=== PATIENT | female | born 1940 | race Caucasian/White ===

== ENCOUNTER 2017-05-01 16:12 | Emergency (ER) | payer MEDICARE ==
[~2017-05-01] VITALS: Ht 167.6 cm; Wt 61.8 kg
[2017-05-01 16:22] VITALS: BP 145/64; PULSE 83; RESP 16; TEMP 98.9; O2SAT 95
--- NOTE | 2017-05-01 17:35 | RADRPT ---
EXAM DATE/TIME: 05/01/2017 17:22 [place] COMPARISON: No previous studies available for comparison. INDICATIONS : Cough. MEDICAL HISTORY : None. SURGICAL HISTORY : None. ENCOUNTER: Initial ACUITY: 1 week PAIN SCORE: 4/10 LOCATION: Bilateral chest FINDINGS: PA and lateral views of the chest demonstrate the lungs to be symmetrically aerated without evidence of mass, infiltrate or effusion. The cardiomediastinal contours are unremarkable. Osseous structure s are intact. CONCLUSION: Normal examination for a patient of this age. Ulises Sandoval MD on May 01, 2017 at 17:32 Board Certified Radiologist. This report was verified electronically.
--- NOTE | 2017-05-01 17:36 | PD ---
HPI Chief Complaint: Cold / Flu Symptoms Time Seen by Provider: 17:11 Travel History International Travel<30 days: No Contact w/Intl Traveler<30days: No Traveled to known affect area: No History of Present Illness HPI 77-year-old female states about a week ago she went to an urgent care and was prescribed an antibiotic and a cold medicine after her flu test was negative. She states she went back the next day when she didn't feel better and they told her just to continue her current treatment regimen. She states she has finished that is feeling better but when she went out and watched a movie today she developed chills and just didn't feel good. She denies any fever, chest pain, shortness of breath or other complaints other than an episode of diarrhea with nausea. Duration is one week. PFSH Past Medical History Medical History: Denies Significant Hx ?: Not Past Surgical History Surgical History: No Previous Surgery Social History Alcohol Use: No Tobacco Use: No Substance Use: No Allergies-Medications (Allergen,Severity, Reaction): Coded Allergies: No Known Allergies (Verified Allergy, Unknown, 05/01/17) Reported Meds & Prescriptions Reported Meds & Active Scripts Active Zofran Odt (Ondansetron Odt) 4 Mg Tab 4 Mg SL Q6HR PRN Review of Systems Except as stated in HPI: all other systems reviewed are Neg Physical Exam Narrative GENERAL: Well-nourished, well-developed patient. Well-appearing SKIN: Warm and dry. HEAD: Normocephalic and atraumatic. EYES: No injection or drainage. ENT: No nasal drainage noted. Bilateral TMs clear, posterior oropharynx without exudate or erythema NECK: Supple, trachea midline. No meningeal signs CARDIOVASCULAR: Regular rate and rhythm RESPIRATORY: Breath sounds equal bilaterally. No accessory muscle use. GASTROINTESTINAL: Abdomen soft, non-tender, nondistended. EXTREMITIES: No edema. NEUROLOGICAL: Awake and alert. Motor and sensory grossly within normal limits. Normal speech. Data Data Last Documented VS Vital Signs Date Time Temp Pulse Resp B/P (MAP) Pulse Ox O2 Delivery O2 Flow Rate FiO2 05/01/17 16:22 98.9 83 16 145/64 (91) 95 Orders Orders Chest, Pa & Lat (05/01/17 ) Ondansetron Odt (Zofran Odt) (05/01/17 17:45) Ed Discharge Order (05/01/17 17:58) [facility] Medical Decision Making Medical Screen Exam Complete: Yes Emergency Medical Condition: Yes Medical Record Reviewed: Yes (past history confirmed) Interpretation(s) cxr no acute Differential Diagnosis Pneumonia, URI, gastroenteritis Narrative Course Will check chest x-ray and reevaluate. Chest x-ray no acute will dose with Zofran Patient denies any new complaints, all questions answered. Patient knows that follow up is incumbent on them and to return to the emergency room immediately if new or worsening symptoms develop. Patient given strict return precautions, vitals reviewed and are normal, agrees to further workup as an outpatient. Diagnosis Primary Impression: Diarrhea Qualified Codes: R19.7 - Diarrhea, unspecified Additional Impression: Chills Patient Instructions: General Instructions Additional Instructions: return as needed, follow with primary thursday, zofran as needed Med/Other Pt SpecificInfo: Prescription(s) given Scripts Ondansetron Odt (Zofran Odt) 4 Mg Tab 4 MG SL Q6HR Y for Nausea/Vomiting, #15 TAB 0 Refills Prov: Evelia Palomo MD 05/01/17 Disposition: 01 DISCHARGE HOME Condition: Stable Evelia Palomo MD May 01, 2017 17:36
[2017-05-01] MEDS ORDERED: ZOFR4TAB3 SL (17:38)
[2017-05-01] MEDS ORDERED: ONDANSETRON ODT 4 MG TAB PO ONE (17:45)
[2017-05-04] MEDS ORDERED: ASPI81CH7 CHEW (11:20)
[2017-05-04] MEDS ORDERED: calcium (11:20)
[2017-05-04] MEDS ORDERED: METO25TA3 PO (11:20)
[2017-05-04] MEDS ORDERED: LOPE1TAB36 (11:20)
[2017-05-04] MEDS ORDERED: NITR1SUB3 SL (11:20)
[2017-05-04] MEDS ORDERED: ATOR80TA45 PO (11:20)
[2017-05-06] MEDS ORDERED: METR-1 PO (09:49)
== END 2017-05-01 18:03 | disposition home or self-care (01) ==
LOC: PHED 16:12
DX: R19.7 Diarrhea, unspecified (principal); R68.83 Chills (without fever); R11.0 Nausea
CPT/HCPCS: 71046; 99283

== ENCOUNTER 2017-05-04 10:58 | Inpatient (IN) | payer MEDICARE, BC ==
[2017-05-04 11:54] LABS: HEMATOCRIT 38.2 % (35.0-46.0); HEMOGLOBIN 12.7 GM/DL (11.6-15.3); MEAN CELL VOLUME 90.5 FL (80.0-100.0); MEAN CORPUSCULAR HGB CONC 33.2 % (32.0-36.0); MEAN PLATELET VOLUME 8.2 FL (7.0-11.0); PLATELET COUNT 170 TH/MM3 (150-450); RED BLOOD COUNT 4.22 MIL/MM3 (4.00-5.30); WHITE BLOOD COUNT 6.4 TH/MM3 (4.0-11.0)
[2017-05-04] MEDS: SODIUM CHLOR 0.9% 1000 ML INJ 1,000 ML IV (11:54)
[2017-05-04 12:02] LABS: CHLORIDE 98 MEQ/L (98-107); POTASSIUM 3.5 MEQ/L (3.5-5.1); SODIUM (NA) 132 MEQ/L (136-145)
[2017-05-04 12:05] LABS: ALBUMIN 2.7 GM/DL (3.4-5.0); CALCIUM 7.9 MG/DL (8.5-10.1); HEMO FLAGS AUTO DIFF
[2017-05-04 12:06] LABS: ANION GAP 11 MEQ/L (5-15); BICARBONATE 23.3 MEQ/L (21.0-32.0); BLOOD UREA NITROGEN 13 MG/DL (7-18); GLUCOSE,RANDOM 117 MG/DL (74-106); MAGNESIUM 1.8 MG/DL (1.5-2.5)
[2017-05-04 12:09] LABS: ALT (GPT) 126 U/L (10-53); AST (GOT) 52 U/L (15-37); CREATININE 0.91 MG/DL (0.50-1.00); GLOMERULAR FILTRATION RATE 60 ML/MIN (>89)
[2017-05-04 12:11] LABS: TOTAL BILIRUBIN ADULT 0.8 MG/DL (0.2-1.0); TOTAL PROTEIN 6.2 GM/DL (6.4-8.2)
[2017-05-04 12:12] LABS: ALKALINE PHOSPHATASE 112 U/L (45-117)
[2017-05-04 12:40] LABS: BANDS 22 % (0-6); LYMPHOCYTES 19 % (9-44); MONOCYTES 17 % (0-8); NEUTROPHIL # MANUAL DIFF 4.1 TH/MM3 (1.8-7.7); POLYS (SEG NEUTROPHILS) 42 % (16-70); WBC DIFF SAMPLE 100
[2017-05-04 12:41] LABS: PLATELET ESTIMATE SMEAR NORMAL (NORMAL); PLATELET MORPHOLOGY NORMAL (NORMAL); SCAN/DIFF FINAL DIFF MANUAL; TOXIC GRANULATION 2+ (NORMAL)
[2017-05-04 13:12] LABS: BILIRUBIN, URINE NEG (NEG); BLOOD, URINE MOD (NEG); GLUCOSE,URINE NEG (NEG); KETONE, URINE NEG (NEG); NITRITE,URINE NEG (NEG); URINE LEUKOCYTE ESTERASE TRACE (NEG)
[2017-05-04 13:28] LABS: METHOD OF COLLECTION VOIDED
[2017-05-04 13:28] LABS: URINE COLOR STRAW (YELLW/STRAW)
[2017-05-04 13:30] LABS: SQUAMOUS EPITHELIAL CELL URINE 0-2 /hpf (0-5); WBC, URINE 0-2 /hpf (0-5)
[2017-05-04] MEDS: NS + KCL 40 MEQ INJ 1,000 ML IV (13:40)
[2017-05-04 15:23] LABS: C. DIFF EPI 027 PRESUMPTIVE NEGATIVE (NEGATIVE)
[2017-05-04] MEDS ORDERED: PILL SPLITTER OTHER (15:30)
[2017-05-04] MEDS: ENOXAPARIN SODIUM 30 MG/0.3 ML SYRINGE SQ (16:34)
[2017-05-04 17:30] LABS: C. DIFF TOXIN PCR POSITIVE (NEGATIVE)
[2017-05-04] MEDS: metroNIDAZOLE 500 MG TAB PO (18:00)
[2017-05-04] MEDS: METOPROLOL TARTRATE 25 MG TAB PO (20:47)
[2017-05-04] MEDS: ATORVASTATIN 40 MG TAB PO (20:47)
[2017-05-05 05:50] LABS: HEMOGLOBIN 11.1 GM/DL (11.6-15.3); MEAN CELL VOLUME 89.6 FL (80.0-100.0); MEAN CORPUSCULAR HEMOGLOBIN 28.5 PG (27.0-34.0); MEAN CORPUSCULAR HGB CONC 31.9 % (32.0-36.0); MEAN PLATELET VOLUME 9.1 FL (7.0-11.0); PLATELET COUNT 170 TH/MM3 (150-450); RED BLOOD COUNT 3.91 MIL/MM3 (4.00-5.30); RED CELL DISTRIBUTION WIDTH 12.1 % (11.6-17.2); WHITE BLOOD COUNT 6.2 TH/MM3 (4.0-11.0)
[2017-05-05 06:07] LABS: HEMO FLAGS AUTO DIFF
[2017-05-05 06:20] LABS: ALBUMIN 2.1 GM/DL (3.4-5.0); ALKALINE PHOSPHATASE 91 U/L (45-117); ALT (GPT) 84 U/L (10-53); ANION GAP 7 MEQ/L (5-15); AST (GOT) 30 U/L (15-37); BICARBONATE 24.2 MEQ/L (21.0-32.0); BLOOD UREA NITROGEN 9 MG/DL (7-18); CALCIUM 7.7 MG/DL (8.5-10.1); CHLORIDE 107 MEQ/L (98-107); CREATININE 0.64 MG/DL (0.50-1.00); GLOMERULAR FILTRATION RATE 90 ML/MIN (>89); GLUCOSE,RANDOM 94 MG/DL (74-106); POTASSIUM 3.7 MEQ/L (3.5-5.1); SODIUM (NA) 138 MEQ/L (136-145); TOTAL BILIRUBIN ADULT 0.7 MG/DL (0.2-1.0); TOTAL PROTEIN 5.3 GM/DL (6.4-8.2)
[2017-05-05 06:50] LABS: BANDS 10 % (0-6); EOSINOPHILS 6 % (0-4); LYMPHOCYTES 23 % (9-44); MONOCYTES 18 % (0-8); NEUTROPHIL # MANUAL DIFF 3.3 TH/MM3 (1.8-7.7); POLYS (SEG NEUTROPHILS) 43 % (16-70); WBC DIFF SAMPLE 100
[2017-05-05 06:51] LABS: SCAN/DIFF FINAL DIFF MANUAL
[2017-05-05] MEDS: METOPROLOL TARTRATE 25 MG TAB PO ×2 (08:43→21:30)
[2017-05-05] MEDS: metroNIDAZOLE 500 MG TAB PO ×3 (08:43→18:10)
[2017-05-05] MEDS: ASPIRIN 81 MG CHEW TAB CHEW (08:44)
[2017-05-05] MEDS: ENOXAPARIN SODIUM 30 MG/0.3 ML SYRINGE SQ (16:00)
[2017-05-05] MEDS: ATORVASTATIN 40 MG TAB PO (21:30)
[2017-05-06] MEDS: METOPROLOL TARTRATE 25 MG TAB PO (08:18)
[2017-05-06] MEDS: metroNIDAZOLE 500 MG TAB PO (08:19)
[2017-05-06] MEDS: ASPIRIN 81 MG CHEW TAB CHEW (08:20)
== END 2017-05-06 11:01 | disposition home or self-care (01) | DRG 373 ==
LOC: PHED 10:58 → PHEDA 13:33 → PH3A 14:26
DX: A04.72 Enterocolitis due to Clostridium difficile, not specified as recurrent (principal); A08.11 Acute gastroenteropathy due to Norwalk agent; I25.2 Old myocardial infarction; I25.10 Atherosclerotic heart disease of native coronary artery without angina pectoris; R53.1 Weakness; Z95.5 Presence of coronary angioplasty implant and graft; Z79.01 Long term (current) use of anticoagulants; Z79.82 Long term (current) use of aspirin; Z80.0 Family history of malignant neoplasm of digestive organs; Z80.8 Family history of malignant neoplasm of other organs or systems; Z87.891 Personal history of nicotine dependence; Z90.710 Acquired absence of both cervix and uterus
CPT/HCPCS: 80053; 81001; 83735; 85007; 85027; 87205; 87328; 87329; 87493; 87506; 96361; 96365; 96366; 99285-25